=== PATIENT | female | born 2005 | race Two or more races ===

== ENCOUNTER 2023-10-12 18:04 | Emergency (ER) | payer OTHER ==
[2023-10-12] MEDS: Acetaminophen 500 MG Tab PO ONE (18:47)
[2023-10-12] MEDS: Bacitracin Oint 1 GM U/D Packet TOP ONE ×2 (18:47→18:49)
== END 2023-10-12 18:55 | disposition home or self-care (01) ==
LOC: JP.ED 18:04
DX: T20.16XA Burn of first degree of forehead and cheek, initial encounter (principal); T21.11XA Burn of first degree of chest wall, initial encounter; X12.XXXA Contact with other hot fluids, initial encounter; Y93.G1 Activity, food preparation and clean up; Y99.0 Civilian activity done for income or pay; Z79.899 Other long term (current) drug therapy
CPT/HCPCS: 99283; A9270